=== PATIENT | male | born 1940 | race Caucasian/White ===

== ENCOUNTER 2017-03-04 07:28 | Day surgery (SDC) | payer MEDICARE, BC ==
[2017-03-04 12:59] LABS: BASOPHILS 0.1 % (0-2); EOSINOPHILS 4.6 % (0-7); HEMATOCRIT 34.3 % (42.0-54.0); HEMOGLOBIN 11.5 g/dL (13.5-17.5); IMMATURE GRANULOCYTES 1.2 % (0-5); LYMPHOCYTES 23.2 % (15-50); MCH 29.1 pg (26.0-34.0); MCHC 33.5 g/dL (31.0-37.0); MCV 86.8 fL (80.0-100.0); MEAN PLATELET VOLUME 10.7 fL (7.4-10.4); MONOCYTES 7.3 % (2-11); NEUTROPHILS 63.6 % (40-80); PLATELET COUNT 187 10x3/uL (130-400); RBC 3.95 10x6/uL (4.20-6.10); RDW 14.3 % (11.5-14.5); WBC 7.6 10x3/uL (4.8-10.8)
[2017-03-04 13:17] LABS: ANION GAP 16.9 mmol/L (8-16); CALCIUM 8.8 mg/dL (8.5-10.1); CARBON DIOXIDE 20.5 mmol/L (21.0-32.0); CREATININE - SERUM 4.1 mg/dL (0.6-1.3); POTASSIUM - SERUM 5.4 mmol/L (3.5-5.1)
[2017-03-04 13:21] LABS: APTT 28.2 SECONDS (22.8-39.4); INR 0.99 (0.85-1.17); PROTIME 12.9 SECONDS (11.6-15.0)
[2017-03-04] MEDS ORDERED: GABAPENTIN100 MG PO (14:12)
[2017-03-04] MEDS ORDERED: PROTONIX40 MG PO (14:12)
[2017-03-04] MEDS ORDERED: COREG6.25 MG PO (14:13)
[2017-03-04] MEDS ORDERED: NORVASC10 MG PO (14:13)
[2017-03-04] MEDS ORDERED: TOPROL XL25 MG PO (14:15)
[2017-03-04] MEDS ORDERED: ROCALTROL0.5 MCG PO (14:17)
[2017-03-04] MEDS ORDERED: SODIUM BICARBO650 MG PO (14:17)
[2017-03-04] MEDS ORDERED: COZAAR50 MG PO (14:18)
[2017-03-04] MEDS ORDERED: LASIX40 MG PO (14:18)
[2017-03-04] MEDS ORDERED: LASIX PO (14:20)
[2017-03-04] MEDS ORDERED: ASPIRIN EC81 M1 PO (14:21)
[2017-03-04] MEDS ORDERED: NOVOLIN 70/30 110 ML SC (14:22)
[2017-03-04 14:23] VITALS: BMI 40.5
[2017-03-04] MEDS ORDERED: ULTRAM50 MG PO (18:44)
--- NOTE | 2017-03-04 19:03 | NUR ---
1845 BACK FROM LEFT ARM FISTULA CREAION. ALERT AND RESPONSIVE. RESP EVEN AND NONLABORED. LEFT ARM IN SLING AND DRESSING C/D/I NO BLEEDING GOOD BRUIT AND THRILL.
--- NOTE | 2017-03-04 20:18 | NUR ---
1915 TOLERATING FULL LIQUIDS. LEFT ARM IN SLING DRESSING C/D I GOOD BRUIT AND THRILL.
--- NOTE | 2017-03-04 20:22 | NUR ---
1944 V/S TAKEN ARM LEFT DRESSING C/D/I GOOD BRUIT AND THRILL DENIES PAIN IN ARM OR NAUSEA. IV DCD CATHETER INTACT. DISCHARGE INSTRUCTIONS GIVEN AND VERBALLY UNDERSTANDS. ARM IN SLING REVIEWED BLOCK INSTRUCTIONS AND TO ONLY WEAR SLING UNTIL FEELING BACK IN ARM. IT IS GOOD TO MOVE ARM. SCRIPT FOR ULTRAM GIVE, AND TOLD TO CALL DR. BIRD OFFICE TUESDAY FOR A TUESDAY APPOINTMENT. VERBALLY UNDERSTANDS. TOLD DRESSING WAS WATER PROOF AND MAY SHOWER.
--- NOTE | 2017-03-04 20:24 | NUR ---
2005 DISCHARGED HOME VIA W/C.
--- NOTE | 2017-03-22 09:36 | OP ---
PATIENT NAME: ROGER SHAH MEDICAL RECORD: [id number] :39 LOCATION:Jf.OPS ADMISSION DATE: SURGEON: MARY JO PÉREZ MD DATE OF OPERATION: 03/04/2017 REFERRED BY: Dr. Burnham. This is dictated from my office via hospital telephone extension today on 03/21/2017. PREOPERATIVE DIAGNOSIS: Chronic kidney disease stage V, N18.5. POSTOPERATIVE DIAGNOSIS: Chronic kidney disease stage V, N18.5. OPERATION PERFORMED: Creation of a bidirectional left PRA cephalic AV fistula, CPT 47987. SURGEON: Mary Jo Pérez MD ANESTHESIA: Nerve block and MAC per FAITH DOCTOR. ASA level 3. PREOPERATIVE ANTIBIOTIC: Ancef. PREOPERATIVE NOTE: Mr. Shah is a very nice 76-year-old white male from [place], [place] who has chronic kidney disease and is expected to require dialysis. He was referred to me for an early creation of a dialysis access. He is right handed and we will have this fistula created in the left upper extremity. With the patient under nerve block and additional IV sedation and monitored per FAITH DOCTOR, he was prepped and draped in a sterile manner. I examined the left arm with ultrasound after applying topical nitroglycerin and while using a Corbin drain as a proximal venous tourniquet. The patient had an excellent proximal radial artery and good cephalic vein in the forearm and in the upper arm as well. The brachial artery exhibited moderate atherosclerotic change and there was more extensive calcification present in the distal radial artery. Both the cephalic and basilic veins in the upper arm were excellent and I thought that he would benefit by PRA cephalic fistula. I made a longitudinal incision beneath the antecubital space and exposed the median antebrachial vein and median cubital vein and the proximal radial artery. The vessels were controlled with Silastic loops. All of the deep venous connections were interrupted ligating veins with Vicryl ties and Hemoclips and dividing them. I occluded the vessels and opened the median cubital vein in preparation for a [id number] anastomosis. The vein was flushed with heparinized saline. The artery was occluded and the proximal radial artery opened near its origin from the brachial artery. That vessel was flushed proximally and distally with heparinized saline and the vessels were then approximated and anastomosed with running 7-0 Prolene. Prior to that, I did use a 2 mm coronary artery dilator, passed distally to disrupt the venous valves in the antebrachial vein distally. When the anastomosis was complete, a fibrin sealant was utilized to be certain of hemostasis and the vessel loops were released and excellent flow was established immediately in the fistula, which was truly bidirectional. There was excellent pulsatile Doppler flow in the median antebrachial vein distal to the anastomosis and then the median cubital OPERATIVE REPORT [id number] INES,ROGER D and cephalic vein proximally. The wound was irrigated with Ancef and gentamicin solution and infiltrated with Marcaine. It was closed in layers with interrupted 3-0 Vicryl and running intracuticular 4-0 Monocryl and Dermabond glue. It was dressed with Maxorb Ag, Tegaderm and Cavilon skin prep and the patient then taken to the recovery room in stable condition with a great new fistula. He will go home today and follow up with me in my office. He will be instructed to wash over the waterproof plastic dressings in the shower as desired. He will continue his home medications and usual diet and is given a prescription for tramadol 50 mg 20 tablets he can take one p.o. q.4 hours p.r.n. for pain. TRANSINT:[id number] Voice Confirmation ID: [id number] DOCUMENT ID: [id number] MARY JO PÉREZ MD at 0936 CC: KELLY BURNHAM MD [id number] DICTATION DATE: 03/21/17 1222 WAREHOUSING TECHNICIAN: 03/21/17 1330 [facility] 03/04/17 [id number] [place] [address]
== END 2017-03-04 20:05 | disposition home or self-care (01) ==
LOC: D.OPS 07:28
PROVIDERS: Internal Medicine Nephrology
DX: E11.22 Type 2 diabetes mellitus with diabetic chronic kidney disease (principal); I12.0 Hypertensive chronic kidney disease with stage 5 chronic kidney disease or end stage renal disease; N18.5 Chronic kidney disease, stage 5; K21.9 Gastro-esophageal reflux disease without esophagitis; Z01.812 Encounter for preprocedural laboratory examination

== ENCOUNTER 2017-10-04 14:55 | Inpatient (IN) | payer MEDICARE, BC ==
[~2017-10-04] VITALS: Ht 170.2 cm; Wt 110.7 kg
--- NOTE | ~2017-10-04 | EC ---
PATIENT:ROGER CHACON DATE OF SERVICE: 10/04/17 SEX: M MEDICAL RECORD: [id number] DATE OF : 38 LOCATION:D.M2 D.210 AGE OF PATIENT: 77 ADMISSION DATE: 10/04/17 REFERRING PHYSICIAN: INTERPRETING PHYSICIAN: SHANEL REYES MD ECHOCARDIOGRAM REPORT ECHO CHARGES 4 ECHO COMPLETE Date: 10/10 CLINICAL DIAGNOSIS: SYSTOLIC HEART FAILURE ECHOCARDIOGRAPHIC MEASUREMENTS (adult normal given) AC root (d.<3.7cm) 4.3 cm LV Septum d (<1.2 cm> 2.1 cm Valve Excursion 1.2 cm LV Septum (systole) 2.8 cm Left Atria (s.<4.0cm> 3.7 cm LVPW d(<1.2cm) 1.4 cm RV (d.<2.3cm) 3.0 cm LVPW (sytole) 2.1 cm LV diastole(<5.6CM) 4.3 cm MV E-F(>70mm/sec) cm LV systole 2.5 cm LVOT Diameter 2.6 cm MV exc.(>10mm) cm Est.ejection fraction (50-75%) % DOPPLER: LVIT cm/sec A 121 cm/sec E 76.0 cm/sec LA cm/sec RVSP 21.0 mmHg LVOT 76.0 cm/sec AOP1/2T m/s Asc. Ao 202 cm/sec RVOT 89.0 cm/sec RA cm/sec PA 122 cm/sec AV Gradient Peak 16.3 mmHg AV Mean 9.0 mmHg AV Area 1.9 cm MV Gradient Peak 7.1 mmHg MV Mean 2.4 mmHg MV Area cm COMMENTS: Registered Phlebotomist Part Time: 1 DASHAWN JONES Singer Songwriter: 2 Dr. Hawk TAPE# PACS Pericardial Effusion Y DATE OF SERVICE: 10/10/2017 ECHOCARDIOGRAM FINDINGS: 1. Left ventricular chamber size is mildly dilated. Left ventricular systolic function is markedly reduced. Overall ejection fraction is 25%. 2. Left atrium, right atrium, and right ventricular chamber sizes are within normal limit. 3. 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 Valve area calculates to 1.9 cm-squared with a gradient of 16 mm across the valve. The remaining valvular structures have normal structure and motion. 4. Doppler interrogation else cruz only reveals trace aortic insufficiency. No other valvular insufficiency or stenosis. Pulmonary systolic pressure is normal, estimated at 21 mmHg. 5. No evidence of pericardial effusion or left ventricular thrombus. TRANSINT:[id number] Voice Confirmation ID: [id number] DOCUMENT ID: [id number] SHANEL REYES MD at 1006 CC: [id number] DICTATION DATE: 10/10/17 1610 EXPRESSIVE ART THERAPIST: 10/10/17 1725 DIS IN 10/12/17 [address] [place] [address]
--- NOTE | ~2017-10-04 | OP ---
PATIENT NAME: ROGER SHAH MEDICAL RECORD: [id number] :39 LOCATION:D.M2 D.2101 ADMISSION DATE:10/04/17 SURGEON: MARY JO PÉREZ MD DATE OF OPERATION: 10/06/2017 He is operated on 10/06/2017, this is dictated on 11/08/2017. REFERRING PHYSICIAN: Danyel Burnham MD PREOPERATIVE DIAGNOSES: End-stage renal disease and previous central venous access requiring SVC gram for documentation of central venous anatomy. POSTOPERATIVE DIAGNOSES: End-stage renal disease and previous central venous access requiring SVC gram for documentation of central venous anatomy. OPERATION PERFORMED: Ultrasound-guided insertion of a 20-cm Trialysis catheter and superior vena cavogram done via the right internal jugular vein. SURGEON: Mary Jo Pérez MD ANESTHESIA: Local and monitoring per FIOS LINE INSTALLER. PREOPERATIVE NOTE: Mr. Shah is a 77-year-old white male patient with end-stage renal disease. He has a left arm AV fistula, which is not functioning and he requires dialysis. He is brought to the operating room for urgent insertion of a Trialysis catheter. He has had previous central venous access and requires central venous angiography for safe placement of the catheter. DESCRIPTION OF PROCEDURE: Under local anesthesia, the patient has already been prepped and draped in sterile manner. His right internal jugular vein was located with ultrasound. A small incision was made over at the base of the neck and a needle and guidewire were inserted under continuous ultrasound guidance under fluoroscopy. A catheter was inserted over the guidewire and a superior vena cavogram performed, which revealed no obstruction of the right internal jugular or brachiocephalic vein or superior vena cava. I inserted a 20-cm Trialysis catheter then over the guidewire, positioned its tip in the right atrium. Both lumens were accessed and aspirated, free return of blood confirmed. They were then flushed with Hep-Lock solution, clamped and capped. The central access line was utilized for IV fluid. The catheter was sutured in place with 2-0 Prolene and a sterile dressing applied and the patient then in stable condition returned to his room on med 2. TRANSINT:[id number] Voice Confirmation ID: [id number] DOCUMENT ID: [id number] MARY JO PÉREZ MD at 2050 CC: [id number] DICTATION DATE: 11/08/17 0842 [employer] TECHNICIAN: 11/08/17 1102 DIS IN 10/12/17 [facility] [address] [place] [address]
--- NOTE | ~2017-10-04 | OP ---
PATIENT NAME: ROGER CHACON MEDICAL RECORD: [id number] :38 LOCATION:D.M2 D.2102 ADMISSION DATE:10/04/17 SURGEON: MARY JO DRIVER MD DATE OF OPERATION: 10/12/2017 SURGEON: Mary Jo Driver MD PREOPERATIVE DIAGNOSIS: End-stage renal disease, requiring hemodialysis. POSTOPERATIVE DIAGNOSIS: End-stage renal disease, requiring hemodialysis. PROCEDURE PERFORMED: 1. Removal of Trialysis catheter. 2. Placement of tunneled left internal jugular HemoSplit dialysis catheter placement with immediate interpretation under fluoroscopy. ANESTHESIA: General. COMPLICATIONS: None. SPECIMENS: None. Case was clean. OPERATIVE COURSE: After consent was obtained, the patient was taken to the operating room and placed in the supine position on the operating table. Next, general anesthesia was given, adequate. The right chest and neck were prepped and draped in typical sterile fashion. Under direct fluoroscopy, a guidewire was placed to the Trialysis catheter. Once in position, the Trialysis catheter was removed. The tract was dilated serially using the dilators in the HemoSplit kit. The dilator and breakaway sheath were then placed under fluoroscopy. Local anesthetic was injected in the right chest wall. The 23 cm catheter was then tunneled from the skin incision site to the needle stick site. The dilator and wire were removed. The catheter was placed into the breakaway sheath under fluoroscopy, it was advance to the atriocaval junction. The breakaway sheath was removed. Both ports were aspirated and flushed. The skin incision was closed with 3-0 Vicryl suture. The catheter was secured to the skin using 2-0 nylon. This was covered with a sterile Tegaderm dressing. At the end of the case, all needle and instrument counts were correct. No complications occurred. The patient was extubated and transferred to PACU in stable condition. TRANSINT:[id number] Voice Confirmation ID: [id number] DOCUMENT ID: [id number] MARY JO DRIVER MD at 0750 CC: [id number] DICTATION DATE: 10/12/17 1040 CAREER ADVISOR: 10/12/17 1254 DIS IN 10/12/17 [id number] [place] [address]
[~2017-10-04 14:55] MED LIST: ASPIRIN EC81 M1 PO; COREG6.25 MG PO; COZAAR50 MG PO; GABAPENTIN100 MG PO; LASIX40 MG PO; NORVASC10 MG PO; NOVOLIN 70/30 110 ML SC; PROTONIX40 MG PO; ROCALTROL0.5 MCG PO; SODIUM BICARBO650 MG PO; TOPROL XL25 MG PO; ULTRAM50 MG PO
[2017-10-04 15:53] VITALS: BP 144/78; BMI 41.6
[2017-10-04] MEDS ORDERED: GABAPENTIN100 MG PO (16:11)
[2017-10-04] MEDS ORDERED: METOLAZONE5 MG PO (16:22)
[2017-10-04] MEDS ORDERED: VALIUM5 MG PO (16:33)
[2017-10-04] MEDS ORDERED: NOVOLIN 70/30 110 ML (16:38)
[2017-10-04 20:38] VITALS: BP 144/60
[2017-10-05 00:28] VITALS: BP 140/76
[2017-10-05 05:41] VITALS: BP 114/43
[2017-10-05 05:49] LABS: BASOPHILS 0.2 % (0-2); EOSINOPHILS 3.6 % (0-7); HEMATOCRIT 30.5 % (42.0-54.0); HEMOGLOBIN 9.2 g/dL (13.5-17.5); IMMATURE GRANULOCYTES 0.2 % (0-5); LYMPHOCYTES 15.3 % (15-50); MCH 27.9 pg (26.0-34.0); MCHC 30.2 g/dL (31.0-37.0); MCV 92.4 fL (80.0-100.0); MEAN PLATELET VOLUME 9.9 fL (7.4-10.4); MONOCYTES 8.5 % (2-11); NEUTROPHILS 72.2 % (40-80); PLATELET COUNT 213 10x3/uL (130-400); RDW 18.5 % (11.5-14.5); WBC 8.9 10x3/uL (4.8-10.8)
[2017-10-05 06:15] LABS: ANION GAP 17.2 mmol/L (8-16); BILIRUBIN - TOTAL 0.4 mg/dL (0.2-1.3); CALCIUM 9.3 mg/dL (8.5-10.1); CARBON DIOXIDE 21.4 mmol/L (21.0-32.0); CREATININE - SERUM 6.6 mg/dL (0.6-1.3); PHOSPHOROUS 5.5 mg/dL (2.5-4.9); POTASSIUM - SERUM 5.6 mmol/L (3.5-5.1); PROTEIN - SERUM 6.5 g/dL (6.4-8.2)
[2017-10-05 09:16] VITALS: BP 135/69
[2017-10-05 10:22] VITALS: Ht 170.2 cm; Wt 110.7 kg
[2017-10-05 12:54] VITALS: BP 138/57
[2017-10-05 17:05] VITALS: BP 134/62
[2017-10-05 21:25] VITALS: BP 132/64
[2017-10-06 00:50] VITALS: BP 127/36
[2017-10-06 04:50] VITALS: BP 121/53
[2017-10-06 05:02] LABS: BASOPHILS 0.4 % (0-2); EOSINOPHILS 2.9 % (0-7); HEMATOCRIT 29.8 % (42.0-54.0); HEMOGLOBIN 9.2 g/dL (13.5-17.5); IMMATURE GRANULOCYTES 0.4 % (0-5); LYMPHOCYTES 13.4 % (15-50); MCH 28.1 pg (26.0-34.0); MCHC 30.9 g/dL (31.0-37.0); MCV 91.1 fL (80.0-100.0); MEAN PLATELET VOLUME 9.7 fL (7.4-10.4); MONOCYTES 10.6 % (2-11); NEUTROPHILS 72.3 % (40-80); PLATELET COUNT 198 10x3/uL (130-400); RBC 3.27 10x6/uL (4.20-6.10); RDW 18.3 % (11.5-14.5); WBC 8.3 10x3/uL (4.8-10.8)
[2017-10-06 05:30] LABS: ANION GAP 18.7 mmol/L (8-16); CALCIUM 8.8 mg/dL (8.5-10.1); CARBON DIOXIDE 20.3 mmol/L (21.0-32.0); CREATININE - SERUM 6.8 mg/dL (0.6-1.3); PHOSPHOROUS 5.8 mg/dL (2.5-4.9)
[2017-10-06 08:08] VITALS: BP 122/58
[2017-10-06 10:53] LABS: HEPATITIS C ANTIBODY <0.1 (0.0-0.9)
[2017-10-06 10:55] LABS: INR 1.14 (0.85-1.17); PROTIME 14.2 SECONDS (11.6-15.0)
[2017-10-06 11:06] VITALS: BP 129/58
[2017-10-06 20:00] VITALS: BP 133/49
[2017-10-07 01:00] VITALS: BP 144/58
[2017-10-07 05:11] VITALS: BP 115/54
[2017-10-07 05:49] LABS: BASOPHILS 0.4 % (0-2); EOSINOPHILS 2.2 % (0-7); HEMATOCRIT 31.7 % (42.0-54.0); HEMOGLOBIN 9.8 g/dL (13.5-17.5); IMMATURE GRANULOCYTES 0.3 % (0-5); LYMPHOCYTES 12.9 % (15-50); MCH 27.8 pg (26.0-34.0); MCHC 30.9 g/dL (31.0-37.0); MCV 90.1 fL (80.0-100.0); MEAN PLATELET VOLUME 9.9 fL (7.4-10.4); MONOCYTES 11.7 % (2-11); NEUTROPHILS 72.5 % (40-80); PLATELET COUNT 199 10x3/uL (130-400); RBC 3.52 10x6/uL (4.20-6.10); RDW 18.2 % (11.5-14.5); WBC 7.3 10x3/uL (4.8-10.8)
[2017-10-07 06:02] LABS: ANION GAP 18.1 mmol/L (8-16); CALCIUM 8.8 mg/dL (8.5-10.1); CARBON DIOXIDE 21.7 mmol/L (21.0-32.0); CREATININE - SERUM 5.2 mg/dL (0.6-1.3); PHOSPHOROUS 5.6 mg/dL (2.5-4.9)
[2017-10-07 06:05] LABS: POTASSIUM - SERUM 4.8 mmol/L (3.5-5.1)
[2017-10-07 08:16] VITALS: BP 148/72
[2017-10-07 11:56] VITALS: BP 136/77
[2017-10-07 15:48] VITALS: BP 165/87
[2017-10-07 20:00] VITALS: BP 139/72
[2017-10-08 01:00] VITALS: BP 132/54
[2017-10-08 04:30] VITALS: BP 132/64
[2017-10-08 10:05] VITALS: BP 133/66
[2017-10-08 16:58] VITALS: BP 134/62
[2017-10-08 21:00] VITALS: BP 126/60
[2017-10-09 02:30] VITALS: BP 123/48
[2017-10-09 05:00] VITALS: BP 123/46
[2017-10-09 05:20] LABS: BASOPHILS 0.4 % (0-2); EOSINOPHILS 3.1 % (0-7); HEMATOCRIT 32.6 % (42.0-54.0); HEMOGLOBIN 10.1 g/dL (13.5-17.5); IMMATURE GRANULOCYTES 0.4 % (0-5); LYMPHOCYTES 16.9 % (15-50); MCH 27.9 pg (26.0-34.0); MCV 90.1 fL (80.0-100.0); MONOCYTES 14.3 % (2-11); NEUTROPHILS 64.9 % (40-80); PLATELET COUNT 177 10x3/uL (130-400); RBC 3.62 10x6/uL (4.20-6.10); RDW 17.5 % (11.5-14.5); WBC 7.9 10x3/uL (4.8-10.8)
[2017-10-09 05:24] LABS: ANION GAP 16.1 mmol/L (8-16); CALCIUM 9.2 mg/dL (8.5-10.1); CARBON DIOXIDE 25.1 mmol/L (21.0-32.0); PHOSPHOROUS 5.7 mg/dL (2.5-4.9); POTASSIUM - SERUM 4.2 mmol/L (3.5-5.1)
[2017-10-09 09:07] VITALS: BP 123/54
[2017-10-09 12:51] VITALS: BP 131/70
[2017-10-09 16:41] VITALS: BP 156/85
[2017-10-09 20:00] VITALS: BP 119/53
[2017-10-10 01:00] VITALS: BP 145/52
[2017-10-10 04:00] VITALS: BP 118/50
[2017-10-10 05:17] LABS: BASOPHILS 0.2 % (0-2); EOSINOPHILS 3.9 % (0-7); HEMATOCRIT 31.6 % (42.0-54.0); IMMATURE GRANULOCYTES 0.3 % (0-5); LYMPHOCYTES 15.6 % (15-50); MCH 28.1 pg (26.0-34.0); MCHC 31.6 g/dL (31.0-37.0); MCV 88.8 fL (80.0-100.0); MEAN PLATELET VOLUME 9.9 fL (7.4-10.4); MONOCYTES 11.9 % (2-11); NEUTROPHILS 68.1 % (40-80); PLATELET COUNT 151 10x3/uL (130-400); RBC 3.56 10x6/uL (4.20-6.10); RDW 17.5 % (11.5-14.5); WBC 8.8 10x3/uL (4.8-10.8)
[2017-10-10 05:38] LABS: ANION GAP 19.7 mmol/L (8-16); CARBON DIOXIDE 21.6 mmol/L (21.0-32.0); CREATININE - SERUM 5.6 mg/dL (0.6-1.3); POTASSIUM - SERUM 4.3 mmol/L (3.5-5.1)
[2017-10-10 08:52] VITALS: BP 141/70
[2017-10-10 11:29] VITALS: BP 124/61
[2017-10-10 16:15] VITALS: BP 141/73
[2017-10-10 20:03] VITALS: BP 160/79
[2017-10-11 01:03] VITALS: BP 123/63
[2017-10-11 05:01] VITALS: BP 120/59
[2017-10-11 05:45] LABS: BASOPHILS 0.2 % (0-2); EOSINOPHILS 3.9 % (0-7); HEMATOCRIT 32.5 % (42.0-54.0); HEMOGLOBIN 10.2 g/dL (13.5-17.5); IMMATURE GRANULOCYTES 0.2 % (0-5); LYMPHOCYTES 18.4 % (15-50); MCH 27.9 pg (26.0-34.0); MCHC 31.4 g/dL (31.0-37.0); MCV 88.8 fL (80.0-100.0); MEAN PLATELET VOLUME 10.1 fL (7.4-10.4); MONOCYTES 10.2 % (2-11); NEUTROPHILS 67.1 % (40-80); PLATELET COUNT 168 10x3/uL (130-400); RBC 3.66 10x6/uL (4.20-6.10); RDW 17.1 % (11.5-14.5); WBC 8.8 10x3/uL (4.8-10.8)
[2017-10-11 06:16] LABS: ANION GAP 15.5 mmol/L (8-16); CALCIUM 9.1 mg/dL (8.5-10.1); CARBON DIOXIDE 24.2 mmol/L (21.0-32.0); CREATININE - SERUM 6.1 mg/dL (0.6-1.3); PHOSPHOROUS 5.5 mg/dL (2.5-4.9); POTASSIUM - SERUM 4.7 mmol/L (3.5-5.1)
[2017-10-11 07:43] VITALS: BP 140/64
[2017-10-11] MEDS ORDERED: HUMULIN N100 U/ML SC ×2 (10:13→10:14)
[2017-10-11] MEDS ORDERED: MIRALAX17 GM PO (10:13)
[2017-10-11] MEDS ORDERED: NEPHRO-VITE RX1 TAB PO (10:15)
[2017-10-11 15:19] VITALS: BP 116/57
[2017-10-11 20:00] VITALS: BP 139/77
[2017-10-12] VITALS: BP 107/56
[2017-10-12 04:00] VITALS: BP 111/43
[2017-10-12 05:13] LABS: BASOPHILS 0.5 % (0-2); EOSINOPHILS 3.8 % (0-7); HEMATOCRIT 32.5 % (42.0-54.0); HEMOGLOBIN 10.2 g/dL (13.5-17.5); IMMATURE GRANULOCYTES 0.4 % (0-5); LYMPHOCYTES 20.3 % (15-50); MCH 27.9 pg (26.0-34.0); MCHC 31.4 g/dL (31.0-37.0); MEAN PLATELET VOLUME 10.1 fL (7.4-10.4); MONOCYTES 10.9 % (2-11); NEUTROPHILS 64.1 % (40-80); PLATELET COUNT 178 10x3/uL (130-400); RBC 3.65 10x6/uL (4.20-6.10); RDW 17.1 % (11.5-14.5)
[2017-10-12 05:30] LABS: ANION GAP 18.1 mmol/L (8-16); CALCIUM 9.3 mg/dL (8.5-10.1); CREATININE - SERUM 4.6 mg/dL (0.6-1.3); POTASSIUM - SERUM 4.1 mmol/L (3.5-5.1)
[2017-10-12 09:10] VITALS: BP 132/51
[2017-10-12] MEDS ORDERED: LASIX40 MG PO (12:31)
== END 2017-10-12 14:17 | disposition home or self-care (01) | DRG 314 ==
LOC: D.M2 14:55
PROVIDERS: Internal Medicine; Internal Medicine Nephrology; Surgery
PROC: 5A1D70Z Performance of Urinary Filtration, Intermittent, Less than 6 Hours Per Day (ICD-10-PCS; principal; 2017-10-04)
PROC: B5181ZZ Fluoroscopy of Superior Vena Cava using Low Osmolar Contrast (ICD-10-PCS; 2017-10-06)
PROC: 02HV33Z Insertion of Infusion Device into Superior Vena Cava, Percutaneous Approach (ICD-10-PCS; 2017-10-06)
PROC: 02HV33Z Insertion of Infusion Device into Superior Vena Cava, Percutaneous Approach (ICD-10-PCS; 2017-10-12)
PROC: B5181ZA Fluoroscopy of Superior Vena Cava using Low Osmolar Contrast, Guidance (ICD-10-PCS; 2017-10-12)
DX: T82.590A Other mechanical complication of surgically created arteriovenous fistula, initial encounter (principal); N18.6 End stage renal disease; I13.2 Hypertensive heart and chronic kidney disease with heart failure and with stage 5 chronic kidney disease, or end stage renal disease; Y83.8 Other surgical procedures as the cause of abnormal reaction of the patient, or of later complication, without mention of misadventure at the time of the procedure; E11.22 Type 2 diabetes mellitus with diabetic chronic kidney disease; Z99.2 Dependence on renal dialysis; E11.21 Type 2 diabetes mellitus with diabetic nephropathy; I50.9 Heart failure, unspecified; K21.9 Gastro-esophageal reflux disease without esophagitis